=== PATIENT | male | born 1970 | race Caucasian/White ===

== ENCOUNTER 2024-01-27 04:23 | Day surgery (SDC) | payer OTHER ==
[2024-01-24 11:07] VITALS: BMI 44.6
[2024-01-27 13:07] VITALS: RESP 18
[2024-01-27] MEDS ORDERED: MIDAZOLAM HCL 2 MG/2 ML SINGLE DOSE VIAL ONE (14:42)
[2024-01-27] MEDS ORDERED: ONDANSETRON 4 MG/2 ML VIAL ONE (15:04)
[2024-01-27 17:50] VITALS: BP 130/67; PULSE 80; TEMP 98.6
== END 2024-01-27 16:36 | disposition home or self-care (01) ==
LOC: JASU-SURG 04:23
PROVIDERS: ATTEND Urology
PROC: 0TF4XZZ Fragmentation in Left Kidney Pelvis, External Approach (ICD-10-PCS; principal; 2024-01-27 15:00)
DX: N20.0 Calculus of kidney (principal)
CPT/HCPCS: 82962